=== PATIENT | female | born 1960 | race Caucasian/White ===

== ENCOUNTER 2025-05-27 13:04 | Emergency (ER) | payer OTHER ==
[2025-05-27] MEDS ORDERED: ONDANSETRON 4 MG/2 ML VIAL ONE (13:45)
[2025-05-27] MEDS ORDERED: FAMOTIDINE 20 MG/2 ML VIAL IV ONE (13:45)
[2025-05-27] MEDS ORDERED: NA CHLORIDE 0.9% 1,000 ML ONE (13:45)
[2025-05-27 13:52] LABS: Absolute Lymphocytes (CBC) 0.6 K/uL (0.7-4.9); Hematocrit 40.1 % (36.0-45.0); Hemoglobin 12.9 g/dL (12.0-15.0); MCH 28.0 pg (27.0-35.0); MCHC 32.2 g/dL (32.0-36.0); MCV 87.0 fL (80-100); MPV 8.5 fL (7.6-11.3); Nucleated RBC Absolute Count 0.0 (0-0); Nucleated Red Blood Cells % 0.0 % (0-0); RBC Red Blood Cell Count 4.60 M/uL (3.86-4.86); White Blood Count 12.10 thou/uL (4.3-10.9)
[2025-05-27 14:10] LABS: ALT/SGPT 29.0 U/L (13-56); AST/SGOT 17.0 U/L (15-37); Albumin 3.5 g/dL (3.4-5.0); Albumin/Globulin Ratio 1.0 (1.1-1.8); Alkaline Phosphatase 87.0 U/L (45-117); Anion Gap 10.2 mEq/L (5.0-15.0); BUN Blood Urea Nitrogen 21.0 mg/dL (7-18); Globulin 3.5 g/dL (2.3-3.5); Glucose Level 140.0 mg/dL (74-106); Lipase 35.0 U/L (13-75); Potassium 4.2 mEq/L (3.5-5.1)
--- NOTE | 2025-05-27 15:00 | RAD REPORT ---
EXAMINATION: CT Abdomen Pelvis Wo Contrast CLINICAL INDICATION: Female, 65 years old. ABD PAIN TECHNIQUE: CT abdomen and pelvis was performed, without IV contrast, as per department protocol. Axia l, sagittal and coronal reconstructions were obtained. One or more of the following dose reduction techniques were used: Automated exposure control, adjustment of the mA and kV according to the patien t size, and iterative reconstruction. Unless otherwise specified, incidental findings do not require dedicated imaging follow-up. COMPARISON: No prior exam. FINDINGS: The lack of intravenous contrast limits the sensitivity of this exam for evaluation of solid visceral organs, vascular structures, and retroperitoneum. LOWER CHEST: The visualized lung bases are clear. LIVER: Normal in size and contour. No focal lesion. BILIARY SYSTEM: No suspicious abnormalities. SPLEEN: Normal size. No focal lesion. PANCREAS: No mass, ductal dilation, or hans-pancreatic fluid. ADRENALS: Normal; no mass. KIDNEYS AND URETERS: Normal size and contour. Mild left hydroureteronephrosis with asymmetric perinep hric fluid. Distal ureter is not well visualized due to streak artifact in the pelvis resulting from hip arthroplasty hardware. Exophytic right upper renal pole 4.7 cm cyst. URINARY BLADDER: Normal contour. GASTROINTESTINAL TRACT: No evidence of bowel obstruction, significant free fluid, free air or abscess . Colonic diverticulosis without evidence of acute diverticulitis. APPENDIX: Appendix not visualized, but no inflammatory changes in region of appendix. LYMPH NODES: No lymphadenopathy. MUSCULOSKELETAL: No acute or suspicious osseous abnormality. ADDITIONAL FINDINGS: None. IMPRESSION: Mild left hydroureteronephrosis. Nonvisualization of the distal left ureter and left UVJ due to metal lic streak artifact limits evaluation for obstructive etiologies.
[2025-05-27 15:27] LABS: Blood Morphology Comment NOT SEEN (NOT SEEN); White Blood Cell Scan OK (OK)
[2025-05-27] MEDS ORDERED: KETOROLAC 30 MG/ML INJ ONE (15:52)
[2025-05-27] MEDS ORDERED: LORAZEPAM 1 MG TABLET ONE (16:36)
[2025-05-27 17:47] LABS: Sqamous Epithelial <5 /HPF (None Seen); Urine Crystals Unidentified Few /HPF (None Seen); Urine Culture Reflex Order NOT NEEDED; Urine Microscopic Reflex YN ORDER UMIC
--- NOTE | 2025-05-27 17:53 | ER ---
Nurse's Notes [facility] Name: Zaira Valdovinos Age: 65 yrs Sex: Female : 1960 Arrival Date: 05/27/2025 Time: 13:04 Bed 3 Private MD: Diagnosis: Unspecified hydronephrosis;Kidney stone Presentation: 05/27 13:21 Chief complaint: EMS states: N/V WITH L FLANK PAIN. Coronavirus screen: At this time, bp the client does not indicate any symptoms associated with coronavirus-19. Ebola Screen: No symptoms or risks identified at this time. Initial Sepsis Screen: Does the patient meet any 2 criteria? No. Patient's initial sepsis screen is negative. Does the patient have a suspected source of infection? No. Patient's initial sepsis screen is negative. Risk Assessment: Do you want to hurt yourself or someone else? Patient reports no desire to harm self or others. Onset of symptoms is unknown. Care prior to arrival: Medication(s) given: zofran 4 mg, IV initiated. 20 GA, in the left antecubital area, Glucose check: 122. 13:21 Method Of Arrival: EMS: [facility] bp 13:21 Acuity: CASSIE 3 bp Triage Assessment: 13:22 General: Appears in no apparent distress. Behavior is cooperative, appropriate for age, bp anxious. Pain: Denies pain. EENT: No deficits noted. Neuro: No deficits noted. Cardiovascular: No deficits noted. Respiratory: No deficits noted. GI: Reports nausea. : No signs and/or symptoms were reported regarding the genitourinary system. Derm: No signs and/or symptoms reported regarding the dermatologic system. Musculoskeletal: No deficits noted. Historical: - Allergies: 13:22 Sulfa (Sulfonamide Antibiotics); bp 13:22 PENICILLINS; bp - PMHx: 13:22 Hypertensive disorder; bp - Immunization history:: Adult Immunizations up to date. - Infectious Disease History:: Denies. - Social history:: Smoking status: Patient denies any tobacco usage or history of. Screenin:23 [facility] ED Fall Risk Assessment (Adult) History of falling in the last 3 months, bp including since admission No falls in past 3 months (0 pts) Confusion or Disorientation No (0 pts) Intoxicated or Sedated No (0 pts) Impaired Gait No (0 pts) Mobility Assist Device Used No (0 pt) Altered Elimination No (0 pt) Score/Fall Risk Level 0 - 2 = Low Risk Oriented to surroundings, Maintained a safe environment. Abuse screen: Denies threats or abuse. Denies injuries from another. Nutritional screening: No deficits noted. Tuberculosis screening: No symptoms or risk factors identified. Assessment: 13:24 General: SEE TRIAGE NOTE. bp 15:03 Reassessment: No changes from previously documented assessment. Patient is alert, bp oriented x 3, equal unlabored respirations, skin warm/dry/pink. GI: Abdomen is non-distended. 16:22 Reassessment: Patient appears in no apparent distress at this time. Patient and/or db family updated on plan of care and expected duration. Pain level reassessed. Patient is alert, oriented x 3, equal unlabored respirations, skin warm/dry/pink. 18:02 Reassessment: Patient states symptoms have improved. bp Vital Signs: 13:21 BP 138 / 70; Pulse 80; Resp 18; Temp 97.4; Pulse Ox 99% ; bp 15:02 BP 134 / 79; Pulse 93; Resp 15; Pulse Ox 99% ; bp 16:10 BP 149 / 83; Pulse 115; Resp 18; Pulse Ox 96% on R/A; db ED Course: 13:15 Patient arrived in ED. iw 13:16 Sushil Leach DO is Attending Physician. ms3 13:20 Gennaro Wade, RAHUL is Primary Nurse. bp 13:22 Triage completed. bp 13:22 Arm band placed on. bp 13:23 Patient has correct armband on for positive identification. bp 13:23 Maintain EMS IV. Dressing intact. Good blood return noted. Site clean \T\ dry. Gauge \T\ bp site: 20 LAC. Flushed with 10 mL NS. 13:47 Initial lab(s) drawn, by slab worker, sent to lab. ts3 14:21 Abdomen In Process Unspecified. EDMS 17:51 Glen Rose MD is Referral Physician. ms3 18:03 No provider procedures requiring assistance completed. IV discontinued, intact, bp bleeding controlled, No redness/swelling at site. Pressure dressing applied. Administered Medications: 13:59 Drug: Famotidine IVP 20 mg IVP once; dilute with 10 mL 0.9% NaCl; give over 2 minutes bp Route: IVP; Site: left antecubital; 15:46 Follow up: Response: No adverse reaction bp 13:59 Drug: Ondansetron IVP 4 mg IVP once; over 2 minutes Route: IVP; Site: left antecubital; bp 15:46 Follow up: Response: No adverse reaction bp 13:59 Drug: NS 0.9% IV 1000 ml IV at 1 bolus Per protocol; to be given as a bolus over 60 bp minutes Route: IV; Rate: 1 bolus; Site: left antecubital; 15:46 Follow up: IV Status: Completed infusion bp 15:45 Drug: Droperidol IVP 1.25 mg IVP once Route: IVP; Site: left antecubital; bp 15:46 Follow up: Response: No adverse reaction bp 15:54 Drug: Ketorolac IVP 10 mg 10 mg IVP once Route: IVP; Site: left antecubital; bp 18:04 Follow up: Response: No adverse reaction bp 16:39 Drug: LORazepam PO 1 mg PO once Route: PO; bp 18:04 Follow up: Response: No adverse reaction bp Medication: 18:03 VIS not applicable for this client. bp Outcome: 17:52 Discharge ordered by . ms3 18:03 Discharged to home ambulatory, with family, bp 18:03 Condition: stable 18:03 Discharge instructions given to patient, Instructed on discharge instructions, follow up and referral plans. medication usage, Demonstrated understanding of instructions, follow-up care, medications, Prescriptions given X 2, 18:05 Patient left the ED. bp Signatures: Dispatcher [employer] EDMS Carmella Martinez, Gennaro Crockett RN, RN RN bp Sushil Leach DO DO ms3 Mercy Das, Yudith Johnson RN ts3
--- NOTE | 2025-05-27 17:53 | EDPHYS ---
Physician Documentation [facility] Name: Zaira Valdovinos Age: 65 yrs Sex: Female : 1960 Arrival Date: 05/27/2025 Time: 13:04 Bed 3 Private MD: ED Physician Sushil Leach HPI: 05/27 13:58 This 65 yrs old Female presents to ER via EMS with complaints of Nausea/Vomiting. ms3 13:58 65-year-old female with past medical history of hypertension presents the emergency ms3 department via [facility] for left-sided pain, nausea, vomiting that began. Patient states her pain was an 8 and became better after vomiting to a 5. EMS states they administered Zofran intranasally. Patient states her pain is currently a 3/10. She denies any inciting factors. Historical: - Allergies: 13:22 Sulfa (Sulfonamide Antibiotics); bp 13:22 PENICILLINS; bp - PMHx: 13:22 Hypertensive disorder; bp - Immunization history:: Adult Immunizations up to date. - Infectious Disease History:: Denies. - Social history:: Smoking status: Patient denies any tobacco usage or history of. ROS: 13:59 Constitutional: Negative for fever, and chills. Cardiovascular: Negative for chest ms3 pain, and palpitations. Respiratory: Negative for shortness of breath, cough, wheezing, and pleuritic chest pain, 13:59 MS/Extremity: Negative for injury and deformity, Skin: Negative for injury, rash, and discoloration, 13:59 Abdomen/GI: Positive for abdominal pain, nausea and vomiting, Exam: 13:59 Constitutional: This is a well developed, well nourished patient who is awake, alert, ms3 and in no acute distress. Cardiovascular: Regular rate and rhythm with a normal S1 and S2. No gallops, murmurs, or rubs. Normal PMI, no JVD. No pulse deficits. Respiratory: Lungs have equal breath sounds bilaterally, clear to auscultation and percussion. No rales, rhonchi or wheezes noted. No increased work of breathing, no retractions or nasal flaring. Abdomen/GI: Soft, non-tender, with normal bowel sounds. No distension or tympany. No guarding or rebound. No evidence of tenderness throughout. Skin: Warm, dry with normal turgor. Normal color with no rashes, no lesions, and no evidence of cellulitis. MS/ Extremity: Pulses equal, no cyanosis. Neurovascular intact. Full, normal range of motion. Vital Signs: 13:21 BP 138 / 70; Pulse 80; Resp 18; Temp 97.4; Pulse Ox 99% ; bp 15:02 BP 134 / 79; Pulse 93; Resp 15; Pulse Ox 99% ; bp 16:10 BP 149 / 83; Pulse 115; Resp 18; Pulse Ox 96% on R/A; db MDM: 13:16 Medical Screening Exam initiated ms3 13:59 Differential diagnosis: Nonspecific abd pain, diverticulitis, viral gastroenteritis, ms3 gastroenteritis. 19:24 Data reviewed: vital signs, nurses notes, lab test result(s), radiologic studies, and ms3 as a result, I will discharge patient. I considered the following discharge prescriptions or medication management in the emergency department Medications were administered in the Emergency Department. See MAR. Independent interpretation of the following test(s) in the Emergency Department CT Scan: My interpretation is CT images reviewed by me do not reveal kidney stone. Counseling: I had a detailed discussion with the patient and/or guardian regarding the historical points, exam findings, and any diagnostic results supporting the discharge/admit diagnosis, lab results, radiology results, the need for outpatient follow up, to return to the emergency department if symptoms worsen or persist or if there are any questions or concerns that arise at home. Special discussion: I discussed with the patient/guardian in detail that at this point there is no indication for admission to the hospital. It is understood, however, that if the symptoms persist or worsen the patient needs to return immediately for re-evaluation. ED course: Discussed CT results and labs with patient and her daughter. Patient to follow-up with Dr. Rose in 2 to 3 days. Patient understands agrees with plan. All questions were answered. Return precautions were discussed to include worsening symptoms, fevers, or any other concerns. On reevaluation patient symptoms improved, patient is alert and oriented x 4, no apparent distress, nontoxic-appearing, speaking full sentences.. 05/27 13:36 Order name: CBC with Diff; Complete Time: 15:52 ms3 05/27 13:36 Order name: CMP; Complete Time: 14:11 ms3 05/27 13:36 Order name: Lipase; Complete Time: 14:11 ms3 05/27 14:02 Order name: CBC Smear Scan; Complete Time: 15:52 EDMS 05/27 15:10 Order name: UA Rfx Ashkan Cult if indicated; Complete Time: 17:49 ms3 05/27 14:21 Order name: Abdomen ; Complete Time: 15:09 EDMS 05/27 13:36 Order name: IV Saline Lock; Complete Time: 13:47 ms3 05/27 13:36 Order name: Labs collected and sent; Complete Time: 13:47 ms3 Administered Medications: 13:59 Drug: Famotidine IVP 20 mg IVP once; dilute with 10 mL 0.9% NaCl; give over 2 minutes bp Route: IVP; Site: left antecubital; 15:46 Follow up: Response: No adverse reaction bp 13:59 Drug: Ondansetron IVP 4 mg IVP once; over 2 minutes Route: IVP; Site: left antecubital; bp 15:46 Follow up: Response: No adverse reaction bp 13:59 Drug: NS 0.9% IV 1000 ml IV at 1 bolus Per protocol; to be given as a bolus over 60 bp minutes Route: IV; Rate: 1 bolus; Site: left antecubital; 15:46 Follow up: IV Status: Completed infusion bp 15:45 Drug: Droperidol IVP 1.25 mg IVP once Route: IVP; Site: left antecubital; bp 15:46 Follow up: Response: No adverse reaction bp 15:54 Drug: Ketorolac IVP 10 mg 10 mg IVP once Route: IVP; Site: left antecubital; bp 18:04 Follow up: Response: No adverse reaction bp 16:39 Drug: LORazepam PO 1 mg PO once Route: PO; bp 18:04 Follow up: Response: No adverse reaction bp Disposition Summary: 05/27/25 17:52 Discharge Ordered Notes: Location: Home ms3 Condition: Stable ms3 Diagnosis - Unspecified hydronephrosis ms3 - Kidney stone ms3 Followup: ms3 - With: Glen Rose MD - When: 2 - 3 days - Reason: Recheck today's complaints Discharge Instructions: - Discharge Summary Sheet ms3 - Kidney Stones, [id number] ms3 - Hydronephrosis ms3 Forms: - Medication Reconciliation Form ms3 - Antibiotic Education ms3 - Prescription Opioid Use ms3 - Patient Portal Instructions ms3 - Leadership Thank You Letter ms3 Prescriptions: - Flomax 0.4 mg Oral capsule - take 1 capsule ORAL route daily; 20 capsule; Refills: 0, Product Selection ms3 Permitted - Tylenol-Codeine #3 300mg-30mg Oral tablet - take 2 tablets ORAL route every 6 hours As needed; 20 tablet; Refills: 0, ms3 Product Selection Permitted Signatures: Dispatcher [employer] Gennaro Marcus, RN RN Sushil Bassett DO DO ms3 Corrections: (The following items were deleted from the chart) 14:21 13:37 Abdomen Pelvis W [id number] ordered. [facility] EDMS
[2025-05-27 18:19] VITALS: TEMP 97.4
[2025-05-27 18:22] VITALS: BP 149/83; O2SAT 96
== END 2025-05-27 18:05 | disposition home or self-care (01) ==
LOC: ER 13:04
DX: N13.2 Hydronephrosis with renal and ureteral calculous obstruction (principal); R11.2 Nausea with vomiting, unspecified; I10 Essential (primary) hypertension; Z88.0 Allergy status to penicillin; Z88.2 Allergy status to sulfonamides
CPT/HCPCS: 96361; 85025; 81001; 36415; 83690; 80053; 74176; 96375; 96374; 99284; J2405; J1790; J7030; J1885